=== PATIENT | male | born 1990 | race African-American/Black ===

== ENCOUNTER 2019-09-28 18:44 | Emergency (ER) | payer OTHER, SELFPAY ==
--- NOTE | ~2019-09-28 | XR_ITS ---
EXAMINATION: XR toe 1st RT min 2V EXAM DATE: 09/28/2019 19:35 INDICATION: Initial encounter following injury, with pain of the right first toe. TECHNIQUE: Right first toe frontal, lateral and oblique projections obtained and reviewed. There i s no prior study for comparison. FINDINGS: There is acute nondisplaced fracture through the base of the right first distal phalanx, c losed posttraumatic finding indicated on the exam for review. There is overlying soft tissue swelling . No radiopaque foreign bodies identified. IMPRESSION: Acute nondisplaced right first distal phalangeal base fracture. Reviewed, dictated and finalized at location A.
[2019-09-28 18:52] VITALS: BP 164/86; PULSE 118; RESP 20; TEMP 37.6; O2SAT 100
--- NOTE | 2019-09-28 19:24 | ED.LOWEXIN ---
HPI - Extremity Injury (Lower) General Chief Complaint: Extremity Injury, Lower Stated Complaint: Right big toe injury Time Seen by Provider: 09/28/19 19:27 Source: patient and RN notes reviewed Mode of arrival: ambulatory Limitations: no limitations History of Present Illness HPI Narrative: This is a 28 years old male presented office for evaluation of right great toes injury this morning. Stated, he was working and accidentally dropped a wooden pallet on his right foot. He did not have much pain until he gets home from work. Currently complain of pain with swelling especially with touching/walking. No treatment prior to arrival. He woke at 12/01 [facility]. Related Data Home Medications Medication Instructions Recorded Confirmed No Home Medications 09/28/19 09/28/19 Allergies Allergy/AdvReac Type Severity Reaction Status Date / Time No Known Allergies Allergy Verified 09/28/19 19:10 Review of Systems Review of Systems: Narrative: CONSTITUTIONAL: Denies fever CARDIOVASCULAR: Denies chest pain RESPIRATORY: Denies dyspnea GASTROINTESTINAL: Denies nausea, vomiting, diarrhea. SKIN: Denies rash MUSCULOSKELETAL: reports right great to toe pain with swelling. NEUROLOGIC: Denies lightheaded/numbness. PMFSH Social History Social History Smoking status: Never smoker Comments At time of signature, I agree with nursing past medical, surgical, social and family history. There is no relevant family history pertinent to the presenting complaint. Exam Narrative: Exam Narrative: GENERAL: This is a well-nourished, well-developed patient, in no apparent distress. CARDIOVASCULAR: Regular rate and rhythm without murmurs, gallops, or rubs. RESPIRATORY: Clear to auscultation. Breath sounds equal bilaterally. No wheezes, rales, or rhonchi. NEURO: awake, alert, and oriented to person, place and time. There were no obvious focal neurologic abnormalities. Steady gait EXTREMITIES: Affected lateral ankle not swollen but there is tenderness and swelling over the dorsum of the foot especially at the right great toe. Range of motion limited secondary to pain. No deformity. The skin is intact. Shikha Coma Scale Eye Opening: Spontaneous 4 Shikha Coma Scale Motor: Obeys Commands 6 [place] Coma Scale Verbal: Oriented 5 Course Vital Signs Vital signs: Vital Signs Temperature 99.7 F H 09/28/19 18:52 Pulse Rate 118 H 09/28/19 18:52 Respiratory Rate 20 09/28/19 18:52 Blood Pressure 164/86 H 09/28/19 18:52 Pulse Oximetry 100 09/28/19 18:52 Temperature 99.7 F H 09/28/19 18:52 Pulse Rate 118 H 09/28/19 18:52 Respiratory Rate 20 09/28/19 18:52 Blood Pressure 164/86 H 09/28/19 18:52 Pulse Oximetry 100 09/28/19 18:52 MDM - Extremity Injury (Lower) MDM Narrative Medical decision making narrative: Elevated BP noted: patient is informed that they may have pre-hypertension or hypertension based on a blood pressure reading in the department. I recommend the patient call the primary care provider listed on their discharge instructions or a physician of their choice this week to arrange follow-up for further evaluation of possible pre-hypertension or hypertension within 1-2week. Discharge instructions reviewed with patient, as well as provided in writing per nursing staff. The instructions also include specific and strict return/GO TO THE ER as well as f/u information. All questions have been answered, and the patient deny any further questions with discharge and discharge plan. Differential Diagnosis Differential diagnosis: Likely fracture of toe Imaging Data Attestation: I personally reviewed and interpreted this imaging study as follows: My impression: see report Radiologist's impression: Acute nondisplaced right first distal phalangeal base fracture. Critical Care Time Critical Care Time Critical Care Time: No Discharge Plan Discha
== END 2019-09-28 20:00 | disposition home or self-care (01) ==
PROVIDERS: Emergency Provider Nurse Practitioner
DX: S92.424A Nondisplaced fracture of distal phalanx of right great toe, initial encounter for closed fracture (principal); W20.8XXA Other cause of strike by thrown, projected or falling object, initial encounter
CPT/HCPCS: 73660; 99214; G0463

== ENCOUNTER 2023-07-01 08:27 | Emergency (ER) | payer OTHER, SELFPAY ==
--- NOTE | ~2023-07-01 | XR_ITS ---
EXAMINATION: XR foot LT min 3V DATE: 07/01/2023 08:49 INDICATION: Right foot pain TECHNIQUE: Dorsoplantar, lateral, and 2 oblique views of the right foot were obtained. COMPARISON: None. FINDINGS: No fracture, dislocation, or subluxation. The bones, soft tissues, and joint spaces are nor mal. IMPRESSION: 1. No acute osseous abnormality. 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
[2023-07-01 08:46] VITALS: BP 189/98; PULSE 73; RESP 16; O2SAT 100
--- NOTE | 2023-07-01 09:03 | ED.LOWEXIN ---
HPI - Extremity Injury (Lower) General Chief Complaint: Extremity Injury, Lower Stated Complaint: Left Foot Injury Time Seen by Provider: 07/01/23 08:48 Source: patient and RN notes reviewed Mode of arrival: ambulatory Limitations: no limitations History of Present Illness HPI Narrative: Patient presents today complaining of pain to the left foot. Yesterday he dropped a case of soda on his foot at home. Denies numbness or tingling. He has been ambulatory since the injury. Currently rates his pain 7/10 and has been taking Tylenol and applying ice with mild relief. Related Data Home Medications Medication Instructions Recorded Confirmed No Home Medications 09/28/19 09/28/19 Allergies Allergy/AdvReac Type Severity Reaction Status Date / Time No Known Allergies Allergy Verified 09/28/19 19:10 Review of Systems Review of Systems: CONSTITUTIONAL: Denies body aches, fever, chills, or sweats. EYES: Denies visual changes, redness, or discharge. ENT: Denies rhinorrhea, congestion, sore throat, or otalgia. CARDIOVASCULAR: Denies chest pain, palpitations, or edema. RESPIRATORY: Denies cough or dyspnea. GASTROINTESTINAL: Denies abdominal pain, nausea, vomiting, or diarrhea. GENITOURINARY: Denies dysuria or hematuria. SKIN: Denies rash, itching, or wounds. MUSCULOSKELETAL: Denies back pain, or myalgia.+ left foot pain NEUROLOGIC: Denies headache, numbness, tingling, or weakness. PSYCH: Denies depression or anxiety. PMFSH Social History Social History Smoking status: Never smoker Comments At time of signature, I have reviewed and agree with nursing past medical, surgical, social and family history unless otherwise noted. Please see nursing chart for further information. There is no relevant family history pertinent to the presenting complaint Exam Narrative: GENERAL: Well-appearing, well-nourished, and in no acute distress. HEAD: Normocephalic, atraumatic. EYES: EOMI. No redness or drainage. Conjunctivae normal. ENT: Mucous membranes pink and moist. NECK: Normal AROM. CHEST: No respiratory distress. EXTREMITIES: Left foot mild tenderness to the medial aspect of the dorsum of the foot. No edema, ecchymosis, or erythema noted. No additional tenderness to the remainder of the foot. Distal sensation intact. Capillary refill normal. Pedal pulse normal. Full range of motion of all toes. SKIN: Warm, dry, no rash. Capillary refill normal. Normal skin turgor. NEURO: No focal deficits. Alert and oriented x3. Gait steady. PSYCH: Normal affect. No signs of depression or anxiety. Course Course Level of Care: Express Care Visit Vital Signs Vital signs: Vital Signs Pulse Rate 73 07/01/23 08:46 Respiratory Rate 16 07/01/23 08:46 Blood Pressure 189/98 H 07/01/23 08:46 Pulse Oximetry 100 07/01/23 08:46 Oxygen Delivery Room Air 07/01/23 08:46 Pulse Rate 73 07/01/23 08:46 Respiratory Rate 16 07/01/23 08:46 Blood Pressure 189/98 H 07/01/23 08:46 Pulse Oximetry 100 07/01/23 08:46 Oxygen Delivery Room Air 07/01/23 08:46 Reviewed MDM - Extremity Injury (Lower) MDM Narrative Medical decision making narrative: X-rays negative. Discussed ice and anti-inflammatories. No prescription medications indicated at this time. Anticipatory guidance given. Differential Diagnosis Differential diagnosis: Likely other (Fracture, foot contusion) Imaging Data Radiologist's impression: ITS Impressions Foot X-Ray 07/01/23 08:52 IMPRESSION: 1. No acute osseous abnormality. Critical Care Time Critical Care Time Critical Care Time: No Discharge Plan Discharge Clinical Impression: Contusion of foot, left Qualifiers: Encounter type: initial encounter Qualified Code(s): S90.32XA - Contusion of left foot, initial encounter Patient Disposition: Home, Self-Care Condition: Stable Instruc
== END 2023-07-01 09:11 | disposition home or self-care (01) ==
PROVIDERS: Emergency Provider Nurse Practitioner
DX: S90.32XA Contusion of left foot, initial encounter (principal); W20.8XXA Other cause of strike by thrown, projected or falling object, initial encounter; Y92.009 Unspecified place in unspecified non-institutional (private) residence as the place of occurrence of the external cause
CPT/HCPCS: 73630; 99203; G0463

== ENCOUNTER 2024-03-26 09:21 | Emergency (ER) | payer SELFPAY ==
[2024-03-26 09:25] VITALS: BP 165/91; PULSE 71; RESP 16; TEMP 36.6; O2SAT 100
--- NOTE | 2024-03-26 09:43 | ED.DENTAL ---
HPI - Dental/Oral General Chief complaint: Dental/Oral Stated complaint: tooth pain/swelling Time Seen by Provider: 03/26/24 09:42 Source: patient, RN notes reviewed and old records reviewed Mode of arrival: ambulatory Limitations: no limitations History of Present Illness HPI Narrative: 33 year old male present to express care with complaints of dental pain to left lower molar for the past 2 days with some swelling to the left side of his face. Patient reports that he also has some jaw pain and has been taking Ibuprofen for his discomfort. Patient reports that it has been awhile since he has has a routine dental examination and does not have dentist with list given.Patient has pain to #19 tooth with noted caries and some redness of gum around tooth. Patient has noted caries and periodontal disease to lower front teeth. Patient reports that he has no difficulty swallowing or any shortness of breath. MD Complaint: tooth pain Location: Tooth # (19) Onset (ago): day(s) (2) Severity: moderate Treatment prior to arrival: other (Ibuprofen) Related Data Allergies Allergy/AdvReac Type Severity Reaction Status Date / Time No Known Allergies Allergy Verified 09/28/19 19:10 Review of Systems Review of Systems: CONSTITUTIONAL: Denies fever, chills, or sweats. ENT: Denies rhinorrhea, congestion, sore throat, or otalgia. Reports dental pain #19 tooth with redness and swelling around tooth with some swelling of left side of face and some jaw pain CARDIOVASCULAR: Denies chest pain, palpitations, or edema. RESPIRATORY: Denies cough or dyspnea. SKIN: Denies rash or itching. MUSCULOSKELETAL: Denies myalgia. NEUROLOGIC: Denies headache All systems reviewed & are unremarkable except as noted in HPI and below PMFSH Surgical History Surgical History S/P wisdom tooth extraction Social History Social History Smoking status: Never smoker Comments At time of signature, agree with nursing past medical, surgical, social and family history. There is no relevant family history pertinent to the presenting complaint Exam Narrative: GENERAL: Well-appearing, well-nourished, and in no acute distress. HEAD: Normocephalic, atraumatic. EYES: PERRLA and EOMI. ENT: Nares clear, no rhinorrhea or epistaxis. Mucous membranes moist. Dental caries noted, swelling and redness around #19 tooth with no drainage noted, noted swelling to left side of face with some left jaw discomfort, Periodontal disease noted to lower front teeth with caries also noted, no trismus or any Enrrqiue angina noted. NECK: Supple. no lymphadenopathy CHEST: Clear to auscultation. No respiratory distress.SAO2 100% on room air HEART: Regular rate and rhythm. No murmur heard. Normal peripheral pulses. SKIN: Warm, dry, no rash. NEURO: No focal deficits. Alert and oriented x3. Course Course Emergency Course: Patient is aware of diagnosis, understands and agrees to treatment plan. Anticipatory guidance given. Patient agrees to follow-up as directed and is aware of reasons to seek care at the emergency department. Portions of this record may have been created with voice recognition software Level of Care: Express Care Visit Vital Signs Vital signs: Vital Signs Temperature 36.6 C 03/26/24 09:25 Pulse Rate 71 03/26/24 09:25 Respiratory Rate 16 03/26/24 09:25 Blood Pressure 165/91 H 03/26/24 09:25 Pulse Oximetry 100 03/26/24 09:25 Oxygen Delivery Room Air 03/26/24 09:25 Temperature 36.6 C 03/26/24 09:25 Pulse Rate 71 03/26/24 09:25 Respiratory Rate 16 03/26/24 09:25 Blood Pressure 165/91 H 03/26/24 09:25 Pulse Oximetry 100 03/26/24 09:25 Oxygen Delivery Room Air 03/26/24 09:25 Reviewed MDM - Dental/Oral MDM Narrative Medical decision making narrative: Patients pain and complaint coupled with physical findings are consistent with dentalgia. There are no focal signs of space occupying lesions that are compromising to the airway; no dysphagia, odynophagia, dysphonia, or dyspnea. No uvular deviation or soft palate edema. Patient is non-toxic appearing. The floor of the mouth is soft with no signs of Enrrique's Angina; no induration below mandible, no neck pain.? Patient is without trismus or drooling and able to swallow secretions.? Patient is felt appropriate for discharge home with dental follow up. Differential Diagnosis Differential diagnosis: Likely dental caries, dental abscess and other (periodontal disease, dentalgia) Medical Records Attestation: I reviewed the patient's medical records. Critical Care Time Critical Care Time Critical Care Time: No Discharge Plan Discharge Clinical Impression: Dental abscess, Dental caries, Facial swelling Patient Disposition: Home, Self-Care Condition: Stable Instructions: Antibiotic Form, Dental Abscess (ED) Additional Instructions: Avoid temperature extremes May apply heat or ice to the face Gentle brushing and flossing Antibiotic as directed Tylenol for lesser pain Use ibuprofen regularly Use the medication as provided for severe pain--caution each tablet contains 325 mg of Tylenol--the maximum dose of Tylenol is 4000 mg in 24 hours. This medication may cause constipation consider starting a laxative at this time Follow-up with the dentist as soon as possible--see the list provided Peridex mouth rinse use twice daily If your symptoms persist, change or worsen significantly before you can contact your personal physician then please, without delay, go to the emergency department for further evaluation. Follow-up with PCP in 7-10 days or sooner if needed Follow up with PCP soon in regards to your blood pressure which is elevated above threshold for referral. Blood pressure above 120/80 may indicate pre-hypertension. 165/91 Prescriptions: New penicillin V potassium 500 mg tablet 500 mg PO BID 10 Days Qty: 20 0RF chlorhexidine gluconate [Peridex] 0.12 % mouthwash 15 ml buccal BID Qty: 473 0RF Follow-up/Referrals: PHYSICIAN,ELECTRONICS TECHNICIAN APPRENTICE [Primary Care Provider] - Stand Alone Forms: Work/School Release IP Time of Disposition: 09:57 [place] Coma Scale Eyes: Open Verbal: Oriented and Alert Motor: Follows Commands Shikha Coma Total Score: 15
== END 2024-03-26 10:02 | disposition home or self-care (01) ==
PROVIDERS: Emergency Provider Registered Nurse
DX: K04.7 Periapical abscess without sinus (principal); K02.9 Dental caries, unspecified
CPT/HCPCS: 99213; G0463

== ENCOUNTER 2024-09-30 11:28 | Emergency (ER) | payer SELFPAY ==
--- NOTE | ~2024-09-30 | XR_ITS ---
EXAMINATION: XR ankle LT min 3V, XR foot LT min 3V DATE: 09/30/2024 11:52 INDICATION: Anterior and lateral left foot and ankle pain post injury TECHNIQUE: 1. Anteroposterior, mortise, additional oblique and lateral view of the left ankle were obtained. 2. Dorsoplantar, two oblique and lateral views of the left foot were obtained. COMPARISON: Left foot radiographs dated 07/01/2023 FINDINGS: Alignment of the left foot and ankle is normal. Small mildly distracted avulsion fracture fragment do rsal to the head of the talus with additional minute flake-like avulsion fracture along the dorsal ma rgin of the navicula. There is some mild overlying soft tissue swelling. No other fractures identifie d. Small Achilles calcaneal spur. Joint spaces are well maintained. No ankle joint effusion. IMPRESSION: 1. Likely Chopart joint injury with mildly distracted small avulsion fracture fragment at the dorsal head of the talus and minute avulsion fracture fragment at the dorsal aspect of the navicula. Reviewed, dictated and finalized at location A. IMPRESSION: 1. Likely Chopart joint injury with mildly distracted small avulsion fracture f ragment at the dorsal head of the talus and minute avulsion fracture fragment a t the dorsal aspect of the navicula.
--- OUTSIDE RECORDS SUMMARY | 2024-09-30 11:30 | XMS_ITS | Clinical Summary ---
Author Organization [facility] Address [address] [place] [address] Phone Care Team Providers Care Automotive Tire Tester Name Role Phone Unavailable Primary Care Provider Unavailabl e Encounters Date Type Department Care Team Description 09/24/2024 [facility] [address] [place] [address] Marley Sandoval APRN, GOURMET COFFEE ATTENDANT 08/25/2024 [facility] [address] [place] [address] Malathi Cobb, VENTURA, GOURMET COFFEE ATTENDANT from Last 3 Months Social History Tobacco Use Types Packs/Day Years Used Date Smoking Tobacco: Never Assessed Sex and Gender Information Value Date Recorded Sex Assigned at Not on file 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 Gender Identity Not on file Sexual Orientation Not on file Plan of Treatment Health Maintenance Due Date Last Done Comments Hepatitis C Virus (HCV) Screening 1991 TdaP Immunization 1991 Hepatitis B Immunization (1 of 3 - 19+ 3-dose series) 11/10/2010 Influenza Immunization (#1) 2024 SARS-COV-2 Immunization (2023- season) 2024 Respiratory Syncytial Virus (RSV) Immunization (Adult) (1 - 1-dose 75+ series) 11/10/2066 Meningococcal Immunization (ACWY) Aged Out No longer eligible based on patient's age to complete this topic Pneumococcal Immunization Combined Aged Out No longer eligible based on patient's age to complete this topic Rotavirus Immunization Aged Out No lo nger eligible based on patient's age to complete this topic
[2024-09-30 11:40] VITALS: BP 185/88; PULSE 90; RESP 18; TEMP 37.1; O2SAT 100
--- NOTE | 2024-09-30 11:41 | ED_ITS ---
HPI - Extremity Injury (Lower) General Chief Complaint: Extremity Injury, Lower Stated Complaint: left ankle/foot pain Time Seen by Provider: 09/30/24 12:10 Source: patient and RN notes reviewed Mode of arrival: ambulatory Limitations: no limitations History of Present Illness HPI Narrative: 33-year-old male presents with concern for left ankle injury. Reports he has left ankle and foot pain after he slipped yesterday and rolled his ankle. He reports today he has does not have pain at rest but has pain with weight-bearing and palpation. He has been taking ibuprofen and Tylenol. He denies decreased strength, sensation, range of motion. MD complaint: ankle injury Related Data Allergies Allergy/AdvReac Type Severity Reaction Status Date / Time No Known Allergies Allergy Verified 09/30/24 11:39 Review of Systems Review of Systems: CONSTITUTIONAL: Denies malaise, chills, sweats, or fever. SKIN: Denies rash or itching, open skin, laceration, abrasion, redness, warmth MUSCULOSKELETAL: Reports left ankle and foot pain and swelling NEUROLOGIC: Denies numbness, weakness All systems reviewed & are unremarkable except as noted in HPI and below PMFSH Surgical History Surgical History S/P wisdom tooth extraction Social History Social History Smoking status: Never smoker Comments At time of signature, agree with nursing past medical, surgical, social and family history. There is no relevant family history pertinent to the presenting complaint Exam Narrative: GENERAL: Well-appearing, well-nourished, and in no acute distress. HEAD: Normocephalic, atraumatic. EYES: PERRLA, conjunctivae clear NECK: Supple. CHEST: Speaks in full sentences. No respiratory distress. HEART: Regular rate and rhythm. Normal and equal peripheral pulses. EXTREMITIES: Left ankle, foot, digits have grossly normal strength and sensation, grossly normal range of motion. No edema or ecchymosis. 5/5 strength with ankle in digit flexion and extension. Normal sensation with sensitivity to light touch and pain. Dorsal ankle tenderness. No open wounds, no skin tenting, no devitalized tissue or atrophy, no trophic changes, no obvious deformity, alignment normal, nearby joints and structures intact. Distal pulses palpable and equal bilaterally, skin warm, dry, pink. Capillary refill less than 3 seconds. SKIN: Warm, dry, no rash. NEURO: Alert and oriented x3. PSYCH: Normal mood and affect Course Course Emergency Course: Patient is aware of diagnosis, understands and agrees to treatment plan. Anticipatory guidance given. Patient agrees to follow-up as directed and is aware of reasons to seek care at the emergency department. Portions of this record may have been created with voice recognition software Level of Care: Express Care Visit Vital Signs Vital signs: Reviewed. MDM - Extremity Injury (Lower) MDM Narrative Medical decision making narrative: The patient was evaluated by myself in the express care. History is obtained from patient who is an independent historian and physical exam was performed.? Available medical records were reviewed at this time. ? Exam findings show no acute concerns or changes; patient is non-toxic appearing and is in no distress. Patient is appropriate for outpatient treatment and follow-up. ? I have evaluated and discussed social determinants of health with the patient that could potentially impact subsequent diagnosis and treatment plans. ? Patients injury and pain is consistent with musculoskeletal etiology. No signs of neurological or vascular compromise on exam. Compartments and tissues are soft without signs of compartment syndrome. Pain is felt appropriate for further evaluation on an outpatient basis. Imaging Data Radiologist's impression: EXAMINATION: XR ankle LT min 3V, XR foot LT min 3V DATE: 09/30/2024 11:52 INDICATION: Anterior and lateral left foot and ankle pain post injury TECHNIQUE: 1. Anteroposterior, mortise, additional oblique and lateral view of the left ankle were obtained. 2. Dorsoplantar, two oblique and lateral views of the left foot were obtained. COMPARISON: Left foot radiographs dated 07/01/2023 FINDINGS: Alignment of the left foot and ankle is normal. Small mildly distracted avulsion fracture fragment dorsal to the head of the talus with additional minute flake- like avulsion fracture along the dorsal margin of the navicula. There is some mild overlying soft tissue swelling. No other fractures identified. Small Ach illes calcaneal spur. Joint spaces are well maintained. No ankle joint effusion. IMPRESSION: 1. Likely Chopart joint injury with mildly distracted small avulsion fracture fragment at the dorsal head of the talus and minute avulsion fracture fragment at the dorsal aspect of the navicula. Critical Care Time Critical Care Time Critical Care Time: No Discharge Plan Discharge Clinical Impression: Avulsion fracture of ankle, Navicular fracture of ankle Patient Disposition: Home Condition: Stable Instructions: Ankle Fracture (ED) Additional Instructions: Please rest, ice and elevate the affected extremity. Please take Motrin 600mg every 8 hours, as needed, for pain (take with food). Follow up with Orthopedic Surgery in 1-2 days for further evaluation - please call for an appointment. Use orthopedic shoe and Anson wrap when walking. Use crutches and do not bear weight on your left lower extremity. Please go to ER immediately for increased pain, tingling/numbness, swelling, redness, and fever Patient Language: German Prescriptions: New ibuprofen 800 mg tablet 800 mg PO Q6H PRN (Reason: pain) Qty: 30 0RF Follow-up/Referrals: PHYSICIAN,SUPERVISOR PIT AND AUXILIARIES [Primary Care Provider] - Mo Downey MD [Physician] - Stand Alone Forms: Work/School Release IP Time of Disposition: 12:20
== END 2024-09-30 12:28 | disposition home or self-care (01) ==
PROVIDERS: Emergency Provider Nurse Practitioner
DX: S82.892A Other fracture of left lower leg, initial encounter for closed fracture (principal); W01.0XXA Fall on same level from slipping, tripping and stumbling without subsequent striking against object, initial encounter
CPT/HCPCS: 73610; 73630; 99214; G0463

== ENCOUNTER 2025-02-06 09:55 | Emergency (ER) | payer OTHER, SELFPAY ==
[2025-02-06 10:00] VITALS: BP 174/100; PULSE 80; RESP 16; TEMP 36.9; O2SAT 100
--- NOTE | 2025-02-06 10:18 | ED_ITS ---
HPI - Extremity Problem General Chief complaint: Extremity Problem,Nontraumatic Stated complaint: Right leg bump Time Seen by Provider: 02/06/25 10:15 Source: patient, RN notes reviewed and old records reviewed Mode of arrival: ambulatory Limitations: no limitations History of Present Illness HPI Narrative: 34 year old male presents to [facility] care with complaints of awakening 3 days ago with pain and numbness to his distal right lateral thigh. Patient reports no pain or any feelings of numbness at gerald time. He states that he thought he had some swelling by his right distal thigh but none at present. Patient reports no injury to area. Patient reports that he has not taken any OTC medication for his complaints. MD Complaint: other (awoke 3 days ago with some pain and numbness at right distal thigh reports no pain at this time) Location: right and lower extremity (distal thigh area) Quality: aching Associated symptoms: denies other symptoms Related Data Allergies Allergy/AdvReac Type Severity Reaction Status Date / Time No Known Allergies Allergy Verified 09/30/24 11:39 Review of Systems Review of Systems: CONSTITUTIONAL: Denies fever, chills, or sweats. EYES: Denies visual changes, redness, or discharge. ENT: Denies rhinorrhea, congestion, sore throat, or otalgia. CARDIOVASCULAR: Denies chest pain, palpitations, or edema. RESPIRATORY: Denies cough or dyspnea. GASTROINTESTINAL: Denies abdominal pain, nausea, vomiting, or diarrhea. GENITOURINARY: Denies dysuria or hematuria. SKIN: Denies rash or itching. MUSCULOSKELETAL: Denies back pain, joint pain, reports pain and feelings of numbness 3 days ago to his distal thigh none at present reports no injury. NEUROLOGIC: Denies headache, numbness, or weakness. PSYCHIATRIC: Denies anxiety or depression. All systems reviewed & are unremarkable except as noted in HPI and below PMFSH Past Medical History Medical History Navicular fracture of ankle Dental abscess Surgical History Surgical History S/P wisdom tooth extraction Family History Family History (Updated 02/07/25 @ 13:36 by Cassie Stevenson NP) Mother Hypertension Social History Social History Smoking status: Never smoker Alcohol intake: current Alcohol use details: social Substance use type: does not use Gender identity (if verbalized by the patient): Male Comments At time of signature, agree with nursing past medical, surgical, social and family history. There is no relevant family history pertinent to the presenting complaint Exam Narrative: GENERAL: Well-appearing, well-nourished, and in no acute distress. HEAD: Normocephalic, atraumatic. EYES: PERRLA and EOMI. ENT: Nares clear, no rhinorrhea or epistaxis. Mucous membranes moist. NECK: Supple.no lymphadenopathy CHEST: Clear to auscultation. No respiratory distress.no cough or any tachypnea SAO1 100% on room air HEART: Regular rate and rhythm. No murmur heard. Normal peripheral pulses. ABDOMEN: Soft, nontender, nondistended, normal active bowel sounds. EXTREMITIES: Normal range of motion. No edema noted, full ROM of right knee without discomfort and full ROM of right hip, no swelling or tenderness to lateral right thigh on palpation no firmness or palpable mass strong pulses right leg. SKIN: Warm, dry, no rash. NEURO: No focal deficits. Alert and oriented x3, gait steady without limp Course Course Emergency Course: Patient is aware of diagnosis, understands and agrees to treatment plan.? Anticipatory guidance given.? Patient agrees to follow-up as directed and is aware of reasons to seek care at the emergency department. Portions of this record may have been created with voice recognition software Level of Care: Express Care Visit Vital Signs Vital signs: Vital Signs Temperature 36.9 C 02/06/25 10:00 Pulse Rate 80 02/06/25 10:00 Respiratory Rate 16 02/06/25 10:00 Blood Pressure 174/100 H 02/06/25 10:00 Pulse Oximetry 100 02/06/25 10:00 Oxygen Delivery Room Air 02/06/25 10:00 Temperature 36.9 C 02/06/25 10:00 Pulse Rate 80 02/06/25 10:00 Respiratory Rate 16 02/06/25 10:00 Blood Pressure 174/100 H 02/06/25 10:00 Pulse Oximetry 100 02/06/25 10:00 Oxygen Delivery Room Air 02/06/25 10:00 Reviewed MDM - Extremity (Nontraumatic) Differential Diagnosis Differential diagnosis: Likely other (pain to right thigh, arthralgia, muscle strain) Medical Records Attestation: I reviewed the patient's medical records. Critical Care Time Critical Care Time Critical Care Time: No Discharge Plan Discharge Clinical Impression: Right thigh pain Patient Disposition: Home Condition: Stable Instructions: Arthralgia (ED) Additional Instructions: Tylenol for lesser pain Ibuprofen regularly for the next 2-3 days for the inflammation take with food Follow-up with orthopedic physician if continued discomfort Follow-up with PCP if further problems or concerns Ice to the area 20-30 minutes 4-6 times a day Elevate above heart If your symptoms persist, change or worsen significantly before you can contact your personal physician then please, without delay, go to the emergency department for further evaluation. Follow-up with PCP in 7-10 days or sooner if needed Follow up with PCP soon in regards to your blood pressure which is elevated above threshold for referral. Blood pressure above 120/80 may indicate pre- hypertension.174/100 need to get established with PCP information given of merged with [facility] and Nadeem noriega Patient Language: Djiboutian Prescriptions: New ibuprofen 600 mg tablet 600 mg PO TID PRN (Reason: pain) Qty: 20 0RF Follow-up/Referrals: PHYSICIAN,EXTENSION COURSE COUNSELOR [Primary Care Provider, Internal Medicine] Time of Disposition: 10:34 Quality Milton Coma Scale Eyes: Open Verbal: Oriented and Alert Motor: Follows Commands Shikha Coma Total Score: 15
--- OUTSIDE RECORDS SUMMARY | 2025-02-06 11:24 | XMS_ITS | Clinical Summary ---
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
--- OUTSIDE RECORDS SUMMARY | 2025-02-06 11:24 | XMS_ITS | Clinical Summary ---
Author Organization [address] Address [address] [place] [phone] Care Team Providers Care Arts Manager Name Role Phone No, Physician Primary Care Provider [phone] Allergies No known active allergies Medications ibuprofen (ADVIL,MOTRIN) 800 mg tablet Take 1 tablet (800 mg total) by mouth 3 (three) times a day as needed 07/11/2024 Active Active Problems No known active problems Encounters Date Type Department Care Team Description 12/04/2024 Telephone [facility] Orthoped[facility] Sports Medicine [address] [facility] [address] [place] [phone] Messi Parker DO 11/20/2024 11:10 AM CDT Ancillary Procedure [facility] at [address] [phone] 11/20/2024 11:00 AM CDT Office Visit [facility] Primary Care at [address] [place] [phone] Messi Parker DO Closed displaced avulsion fracture of left talus with routine healing, subsequent encounter (Primary Dx) from Last 3 Months Family History Medical History Relation Name Comments Diabetes Mother Hypertension Mother No Known Problems Sister 1 No Known Problems Sister 2 Relation Name Status Comments Father Mother Alive Sister 1 Alive Sister 2 Alive Social History Tobacco Use Types Packs/Day Years Used Date Smoking Tobacco: Never Smokeless Tobacco: Never Tobacco Cessation:Counseling Given: No AUDIT-C Answer Date Recorded Q1: How often do you have a drink containing alcohol? Never 10/11/2024 Q2: How many drinks containi ng alcohol do you have on a typical day when you are drinking? Patient does not drink Q3: How often do you have si x or more drinks on one occasion? 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 Gender Identity Not on file Sexual Orientation Not on file Obstetrics History Last Filed Vital Signs Vital Sign Reading Time Taken Comments Blood Pressure 171/125 11/20/2024 11:26 AM CDT Pulse 63 11/20/2024 11:26 AM CDT Temperature - - Respiratory Rate 18 10/11/2024 2:42 PM CDT Oxygen Saturation - - Inhaled Oxygen Concentration - - Weight 108.9 kg (240 lb) 11/20/2024 11:26 AM CDT Height 180.3 cm (5' 11) 11/20/2024 11:26 AM CDT Body Mass Index 33.47 11/20/2024 11:26 AM CDT Plan of Treatment Health Maintenance Due Date Last Done Comments Depression Screening 1991 Hepatitis C Screening 1991 Varicella Vaccines (2 of 2 - 2-dose childhood series) 03/17/2002 12/23/2001 Regular Well Visit/Exam 18-64 11/10/2009 HPV Vaccines (1 - 3-dose SCDM series) 11/10/2018 Covid-19 Vaccine ( - season) 2025 08/10/2021, 07/18/2021 Influenza Vaccine (#1) 2025 05/23/2019 DTaP/Tdap/Td Vaccine (7 - Td or Tdap) 05/23/2029 05/23/2019, 12/23/2001, 01/18/1996, Additional history exists Hepatitis B Screening Completed 01/08/1998 , 01/25/1997, 11/27/1996 Pneumococcal vaccine <65 Aged Out No longer eligible based on patient's age to complete this topic Procedures Procedure Name Priority Date/Time Associated Diagnosis Comments XR FOOT LEFT 3 OR MORE VIEWS Schedule Routine, Read Routine (OP Routine) 11/20/2024 11:22 AM CDT Closed displaced avulsion fracture of left talus with routine healing, subsequent encounter from Last 3 Months Results * XR Foot Left 3 or More Views (11/20/2024 11:22 AM CDT) Anatomical Region Laterality Modality Lower Extremities, Foot Left Digital Radiography 11/20/2024 10:0 4 PM CDT Narrative 11/20/2024 10:07 PM CDT EXAM DESCRIPTION: XR FOOT LEFT 3 OR MORE VIEWS REASON FOR STUDY: pain Fx f/u from 09/30. Repeat per Dr Parker TECHNIQUE: Frontal, oblique, and lateral views of the left foot . COMPARISON: 10/11/2024 FINDINGS: BONES/JOINTS: Presumed avulsion fracture fragments at the dorsal talonavicular junction show further decrease in conspicuity compared to the prior. Joint spaces are preserved. SOFT TISSUES: Unremarkable. IMPRESSION: Further healing of the talonavicular avulsion fracture fragments. THIS IS AN ELECTRONICALLY VERIFIED FINAL REPORT 11/20/2024 10:07 PM - Electronically signed by Misael Santos M.D. AR T: Report ID: [id number] Reading Location: [id number] Procedure Note Misael Santos MD - 11/20/2024 EXAM DESCRIPTION: XR FOOT LEFT 3 OR MORE VIEWS REASON FOR STUDY: pain Fx f/u from 09/30. Repeat per Dr Parker TECHNIQUE: Frontal, oblique, and lateral views of the left foot . COMPARISON: 10/11/2024 FINDINGS: BONES/JOINTS: Presumed avulsion fracture fragments at thedorsal talonavicular junction show further decrease in conspicuity compared tothe prior. Joint spaces are preserved. SOFT TISSUES: Unremarkable. IMPRESSION: Further healing of the talonavicular avulsion fracturefragments. THIS IS AN ELECTRONICALLY VERIFIED FINAL REPORT 11/20/2024 10:07 PM - Electronically signed by Misael Santos M.D. AR T: Report ID: [id number] Reading Location: [id number] Messi Parker DO IMG XR PROCEDURES Trudy l Result from Last 3 Months Insurance IDPA Care Teams Arts Manager Relationship Specialty Start Date End Date No, Physician PCP - General 10/02/24
== END 2025-02-06 10:43 | disposition home or self-care (01) ==
PROVIDERS: Emergency Provider Registered Nurse
DX: M79.651 Pain in right thigh (principal)
CPT/HCPCS: 99213; G0463